=== PATIENT | female | born 1960 | race Caucasian/White ===

== ENCOUNTER 2018-01-31 11:36 | Emergency (ER) | payer OTHER, SELFPAY | END 2018-01-31 12:35 | disposition home or self-care (01) | LOC: NAV ERS 11:36 | DX: J20.9 Acute bronchitis, unspecified (principal); R07.82 Intercostal pain; I25.2 Old myocardial infarction; E03.9 Hypothyroidism, unspecified; I10 Essential (primary) hypertension; F41.9 Anxiety disorder, unspecified; F17.210 Nicotine dependence, cigarettes, uncomplicated; Z79.899 Other long term (current) drug therapy; Z79.82 Long term (current) use of aspirin | CPT/HCPCS: 99284 ==

== ENCOUNTER 2021-11-12 12:23 | Outpatient (CLI) | payer BC ==
[~2021-11-12 12:23] MED LIST: Iopamidol 370 76% 100 ML VIAL ONE
== END 2021-11-12 12:24 | disposition home or self-care (01) ==
LOC: NAV CT 12:23
PROVIDERS: ATTEND Internal Medicine Hematology & Oncology
DX: Z01.818 Encounter for other preprocedural examination (principal); C32.9 Malignant neoplasm of larynx, unspecified; Z87.891 Personal history of nicotine dependence; R91.8 Other nonspecific abnormal finding of lung field; R91.1 Solitary pulmonary nodule; I70.0 Atherosclerosis of aorta; J98.4 Other disorders of lung; M47.819 Spondylosis without myelopathy or radiculopathy, site unspecified; M43.12 Spondylolisthesis, cervical region; M43.16 Spondylolisthesis, lumbar region; M43.13 Spondylolisthesis, cervicothoracic region
CPT/HCPCS: 36415; 71260; 82565; Q9967

== ENCOUNTER 2022-11-27 13:48 | Emergency (ER) | payer BC ==
[2022-11-27 14:58] LABS: #Eosinphils 0.1 thou/uL (0.0-0.7); #Lymphocytes 1.1 thou/uL (1.20-3.40); #Monocytes 0.7 thou/uL (0.11-0.59); #Neutrophils 10.1 thou/uL (1.40-6.50); %Basophils 0.4 % (0.0-1.0); %Eosinophils 0.7 % (0.0-10.0); %Lymphocytes 8.8 % (21.0-51.0); %Monocytes 5.6 % (0.0-10.0); %Neutrophils 84.6 % (42.0-75.0); Hematocrit 46.6 % (36.0-47.0); Hemoglobin 14.7 g/dL (12.0-16.0); Mean Corpuscular HGB CONC 31.7 g/dL (32.0-36.0); Mean Corpuscular Hemoglobin 29.1 pg (27.0-31.0); Mean Corpuscular Volume 91.9 fl (78.0-98.0); Mean Platelet Volume 8.9 fL (7.4-10.4); Platelet Count 137 10x3/uL (130-400); RBC Distribution Width 14.8 % (11.5-14.5); Red Blood Cell (RBC) Count 5.07 mill/uL (4.20-5.40)
[2022-11-27 15:17] LABS: Troponin I Less than 0.010 ng/mL (< 0.028)
[2022-11-27 15:42] LABS: ALT (SGPT) 41 U/L (8-55); AST (SGOT) 42 U/L (5-34); Albumin 3.3 g/dL (3.4-4.8); Alkaline Phosphatase 161 U/L (40-110); Anion Gap 18 mmol/L (10-20); BUN (Urea Nitrogen) 31 mg/dL (9.8-20.1); Bilirubin, Total 0.7 mg/dL (0.2-1.2); Calc. Creatinine Clearance 0 mL/min (70-130); Calcium 9.1 mg/dL (7.8-10.44); Carbon Dioxide 21 mmol/L (23-31); Chloride 91 mmol/L (98-107); Estimated GFR 74; Globulin 2.9 g/dL (2.4-3.5); Glucose 83 mg/dL (80-115); Potassium 5.2 mmol/L (3.5-5.1); Protein, Total 6.2 g/dL (5.8-8.1); Sodium 125 mmol/L (136-145)
[2022-11-27] MEDS ORDERED: dilTIAZem CD 120 MG CAP ONE (16:10)
[2022-11-27] MEDS ORDERED: dilTIAZem 25 MG/5 ML VIAL ONE (16:10)
== END 2022-11-27 17:27 | disposition home or self-care (01) ==
LOC: NAV ERS 13:48
DX: I48.91 Unspecified atrial fibrillation (principal); E87.5 Hyperkalemia; R00.0 Tachycardia, unspecified; I10 Essential (primary) hypertension; F17.210 Nicotine dependence, cigarettes, uncomplicated; I25.10 Atherosclerotic heart disease of native coronary artery without angina pectoris; I25.2 Old myocardial infarction; E03.9 Hypothyroidism, unspecified; E78.5 Hyperlipidemia, unspecified; Z95.5 Presence of coronary angioplasty implant and graft; Z79.01 Long term (current) use of anticoagulants; Z79.899 Other long term (current) drug therapy
CPT/HCPCS: 36415; 71045; 83880; 84443; 84484; 93005; 96374

== ENCOUNTER 2023-01-23 14:47 | Emergency (ER) | payer BC ==
[2023-01-23] MEDS ORDERED: predniSONE 20 MG TAB ONE (16:07)
== END 2023-01-23 16:10 | disposition home or self-care (01) ==
LOC: NAV ERS 14:47
DX: J20.9 Acute bronchitis, unspecified (principal); I48.91 Unspecified atrial fibrillation; I25.10 Atherosclerotic heart disease of native coronary artery without angina pectoris; E78.5 Hyperlipidemia, unspecified; E03.9 Hypothyroidism, unspecified; I10 Essential (primary) hypertension; F17.210 Nicotine dependence, cigarettes, uncomplicated; Z79.899 Other long term (current) drug therapy; Z79.01 Long term (current) use of anticoagulants
CPT/HCPCS: 71046; J7512